=== PATIENT | male | born 1950 | race Hispanic/Latino ===

== ENCOUNTER 2017-05-24 11:43 | Emergency (ER) | payer MEDICARE ==
[2017-05-24 12:00] VITALS: BMI 26.7
--- NOTE | 2017-05-24 12:24 | ED PDOC ---
Arrival/HPI - General Chief Complaint: Cough, Cold, Congestion Time Seen by Provider: 05/24/17 12:04 Historian: Patient - History of Present Illness Time/Duration: Other (11 days) Symptom Onset: Gradual Symptom Course: Improving Severity Level: Severe Activities at Onset: Rest Associated Symptoms (Text): 05/24/17 12:21 Patient complains of an 11 day history of a cough productive of thick green sputum. He reports a temperature of 105.1. Generalized myalgias and arthralgias. Patient reports that he is concerned that he has pertussis and is also concerned that he has fluid around his heart. He is extremely anxious and nervous with pressured speech. He quit smoking many years ago. Denies alcohol or drugs. Denies wheezing or shortness of breath. Denies chest pain. There is a history of hypertension, but he has not taken his medication several years. Past Medical History - Infectious Disease Hx of Infectious Diseases: None - Cardiac Hx Cardiac Disorders: No - Pulmonary Hx Respiratory Disorders: No - Neurological Hx Neurological Disorder: No - HEENT Hx HEENT Disorder: No - Renal Hx Renal Disorder: No - Endocrine/Metabolic Hx Endocrine Disorders: No - Hematological/Oncological Hx Hepatitis C: Yes - Integumentary Hx Dermatological Disorder: No - Musculoskeletal/Rheumatological Hx Musculoskeletal Disorders: No - Gastrointestinal Hx Gastrointestinal Disorders: No - Genitourinary/Gynecological Hx Genitourinary Disorders: No - Psychiatric Hx Psychophysiologic Disorder: No Hx Substance Use: No - Anesthesia Hx Anesthesia: No Hx Anesthesia Reactions: No Hx Malignant Hyperthermia: No Family/Social History - Physician Review Nursing Documentation Reviewed: Yes Family/Social History: Unknown Family HX Smoking Status: Former Smoker Hx Alcohol Use: No Hx Substance Use: No Allergies/Home Meds Allergies/Adverse Reactions: Allergies No Known Allergies Allergy (Unverified 05/24/17 12:17) Review of Systems - Physician Review All systems were reviewed & negative as marked: Yes - Review of Systems Constitutional: Fevers. absent: Fatigue Respiratory: Cough, Sputum. absent: SOB, Wheezing Cardiovascular: absent: Chest Pain, Palpitations, Syncope Gastrointestinal: absent: Abdominal Pain, Nausea, Vomiting Neurological: absent: Headache, Dizziness, Focal Weakness Physical Exam Vital Signs Temp Pulse Resp BP Pulse Ox 05/24/17 12:17 98.3 F 60 18 118/91 H 100 Temperature: Afebrile Blood Pressure: Normal Pulse: Regular Respiratory Rate: Normal Appearance: Positive for: Well-Appearing, Non-Toxic, Comfortable Pain Distress: None Mental Status: Positive for: Alert and Oriented X 3 - Systems Exam Head: Present: Atraumatic, Normocephalic Pupils: Present: PERRL Extroacular Muscles: Present: EOMI Conjunctiva: Present: Normal Mouth: Present: Moist Mucous Membranes Pharnyx: No: ERYTHEMA, EXUDATE, TONSILS ENLARGED Neck: Present: Normal Range of Motion Respiratory/Chest: Present: Clear to Auscultation, Good Air Exchange, Decreased Breath Sounds. No: Respiratory Distress, Accessory Muscle Use Cardiovascular: Present: Regular Rate and Rhythm, Normal S1, S2. No: Murmurs Abdomen: Present: Normal Bowel Sounds. No: Tenderness, Distention, Peritoneal Signs, Rebound, Guarding Upper Extremity: Present: Normal Inspection. No: Cyanosis, Edema Lower Extremity: Present: Normal Inspection. No: Edema Psychiatric: Present: Alert, Oriented x 3, Normal Insight, Normal Concentration , Anxious, Agitated. No: Intoxicated, Lethargic Medical Decision Making - RAD Interpretation Radiology Orders: 05/24/17 12:17 CHEST TWO VIEWS (PA/LAT) [RAD] Stat Chest 2 view shows no infiltrate effusion or cardiomegaly Veneer Drier: ED Physician Disposition/Present on Arrival - Present on Arrival Any Indicators Present on Arrival: No History of DVT/PE: No History of Uncontrolled Diabetes: No Urinary Catheter: No History of Decub. Ulcer: No History Surgical Site Infection Following: None - Disposition Have Diagnosis and Disposition been Completed?: Yes Diagnosis: Bronchitis Disposition: HOME/ ROUTINE Disposition Time: 13:22 Patient Plan: Discharge Condition: GOOD Discharge Instructions (ExitCare): Acute Bronchitis Additional Instructions: Symptomatic treatment. Tylenol or Advil as directed on bottle as needed. Mucinex as directed on bottle as needed. Follow-up with PMD. Follow-up as needed. Prescriptions: Benzonatate [Tessalon Perles] 100 mg PO Q8 #30 sgl Azithromycin [Zithromax] 250 mg PO DAILY #6 tab Referrals: Lurdes Rosas MD [Staff Provider] - Follow up with primary Forms: [employer] ([place]uan)
[2017-05-24 12:59] VITALS: BP 118/91; PULSE 60; RESP 18; TEMP 98.3; O2SAT 100
--- NOTE | 2017-05-24 13:31 | RAD ---
HISTORY: cough COMPARISON: No prior. TECHNIQUE: Chest PA and lateral FINDINGS: LUNGS: No active pulmonary disease. PLEURA: No significant pleural effusion identified. No pneumothorax apparent. CARDIOVASCULAR: Normal. OSSEOUS STRUCTURES: No significant abnormalities. VISUALIZED UPPER ABDOMEN: Normal. OTHER FINDINGS: None. IMPRESSION: No evidence of pneumonia or acute pulmonary disease.
== END 2017-05-24 13:35 | disposition home or self-care (01) ==
LOC: ED 11:43
DX: J40 Bronchitis, not specified as acute or chronic (principal); Z87.891 Personal history of nicotine dependence; I10 Essential (primary) hypertension